=== PATIENT | female | born 1955 | race Caucasian/White ===

== ENCOUNTER 2020-01-25 15:26 | Observation (INO) | payer MEDICARE, SELFPAY ==
[2020-01-25] VITALS (9 sets, daily range): BP systolic 110–134; BP diastolic 56–80; PULSE 60–79; RESP 12–19; TEMP 36.2–37.7; O2SAT 94–95; BMI 35.1
--- NOTE | ~2020-01-25 | XR_ITS ---
EXAMINATION: XR chest 1V portable 01/25/2020 16:06 INDICATION: Left chest pain PROCEDURE: AP portable chest COMPARISON: 11/22/2016 FINDINGS: The lungs are clear. The cardiomediastinal silhouette is within normal limits. There are no pleural effusions. There is no pneumothorax suspected. IMPRESSION: 1: NO ACUTE CARDIOPULMONARY DISEASE. Reviewed, dictated and finalized at location A.
--- NOTE | 2020-01-25 15:33 | ECG_ITS ---
Measurements Intervals [place] Rate: 61 P: 60 UT: 232 QRS: -1 QRSD: 102 T: 51 QT: 474 QTc: 481 Interpretive Statements SINUS RHYTHM WITH FIRST DEGREE AV BLOCK PROLONGED QT INTERVAL ABNORMAL ECG Electronically Signed On 01-26-2020 7:18:33 CDT by Vishnu Hernadez D.O.
[2020-01-25 16:10] LABS: Basophils Absolute Auto 0.02 K/mm3 (0.00-0.10); Basophils Percent Auto 0.4 % (0.0-1.0); Eosinophils Absolute Auto 0.48 K/mm3 (0.02-0.50); Hematocrit 38.7 % (35.0-49.0); Hemoglobin 12.2 g/dL (12.0-15.0); Immature Granulocyte Absolute 0.02 K/mm3 (0.00-0.00); Immature Granulocyte Percent A 0.4 % (0.0-0.0); Lymphocytes Absolute Auto 1.57 K/mm3 (1.10-4.50); Lymphocytes Percent Auto 29.5 % (18.0-42.0); Mean Corpuscular HGB Conc 31.5 g/dL (32.0-36.0); Mean Corpuscular Hemoglobin 29.2 pg (27.0-31.0); Mean Corpuscular Volume 92.6 fL (78.0-102.0); Mean Platelet Volume 10.1 fl (9.2-11.8); Monocytes Absolute Auto 0.37 K/mm3 (0.10-0.90); Neutrophils Absolute Auto 2.9 K/mm3 (1.7-7.2); Neutrophils Percent Auto 53.7 % (50.0-70.0); Platelet Count Result 204 K/mm3 (150-420); Red Blood Count 4.18 M/mm3 (4.20-5.40); Red Cell Distribution Width 13.3 % (11.6-14.4); White Blood Count 5.3 K/mm3 (4.8-10.8)
[2020-01-25 16:22] LABS: INR 1.1; Partial Thromboplastin Time 26.6 SEC (22.3-31.6); Prothrombin Time 11.1 Seconds (9.64-11.0)
[2020-01-25 16:24] LABS: D Dimer 0.31 mg/L (0.19-0.50)
[2020-01-25 16:26] LABS: BNP 7 pg/mL (0-100)
[2020-01-25 16:32] LABS: Troponin I < 0.02 ng/mL (0.00-0.056)
[2020-01-25 16:33] LABS: Alanine Aminotransferase 18 U/L (14-59); Albumin Level 3.2 g/dL (3.4-5.0); Alkaline Phosphatase 88 U/L (46-116); Anion Gap 8 mmol/L (8-16); Aspartate Amino Transferase 18 U/L (15-37); Bilirubin,Total 0.4 mg/dL (0.00-1.00); Blood Urea Nitrogen 15 mg/dL (7-18); Calcium 8.4 mg/dL (8.5-10.1); Carbon Dioxide 29 mmol/L (21-32); Chloride 105 mmol/L (98-108); Estimated CRCL calculation 77 ml/min; Estimated Glomerular Filt Rate 58; Glucose 99 mg/dL (70-99); Lipase 63 U/L (73-393); Osmolality Calculated 294 mOsm/kg (285-295); Potassium 3.8 mmol/L (3.5-5.1); Sodium 142 mmol/L (136-145); Thyroid Stimulating Hormone 2.34 uIU/mL (0.36-3.74); Total Protein 7.3 g/dL (6.4-8.2)
--- NOTE | 2020-01-25 16:41 | ED.CHESTPAIN ---
HPI - Chest Pain General Chief Complaint: Chest Pain Stated Complaint: ems arrival Source: patient and EMS Mode of arrival: EMS Limitations: no limitations History of Present Illness HPI narrative: This is a 64-year-old female presents via EMS with some midsternal chest pain feels heaviness started earlier this afternoon after worker from her nap. The patient denies having any other symptoms of shortness of breath, no nausea or vomiting no diaphoresis. Patient is currently not a smoker, has a family history of heart disease in her mother. And the patient has a history of a bypass in 2005 and had a cardiac catheterization in 2016 which they told her she had a normal catheterization. Patient has a history of hypothyroidism, hyperlipidemia, hypertension, COPD. currently the patient has a nonproductive cough with no shortness of breath no fever chills. The patient is visiting from out of town from [place] and her primary care and home support worker located in the [facility]. MD complaint: chest pain, chest heaviness and chest discomfort Pertinent past history: coronary artery disease and prior CO Onset (ago): hour(s) Timing of current episode: episodic and constant Prior episodes: Yes Onset: during rest Pain location: substernal and epigastric Pain radiation: none Severity: moderate Quality: aching Relieving factors: nothing Related Data Home Medications Medication Instructions Recorded Confirmed clopidogrel 75 mg PO DAILY 01/25/20 01/25/20 donepezil 10 mg PO HS 01/25/20 01/25/20 gabapentin 800 mg PO TID 01/25/20 01/25/20 ipratropium-albuterol 3 ml INHALATION PRN 01/25/20 01/25/20 levothyroxine 75 mcg PO DAILY 01/25/20 01/25/20 losartan 50 mg PO DAILY 01/25/20 01/25/20 metoprolol tartrate 25 mg PO BID 01/25/20 01/25/20 pravastatin 40 mg PO DAILY 01/25/20 01/25/20 Allergies Allergy/AdvReac Type Severity Reaction Status Date / Time IV CONTRAST Allergy Unknown Uncoded 01/25/20 15:40 Review of Systems Review of Systems: All systems reviewed & are unremarkable except as noted in HPI and below PMFSH Past Medical History Medical History CAD (coronary artery disease) COPD (chronic obstructive pulmonary disease) HLD (hyperlipidemia) HTN (hypertension) Hypothyroidism (acquired) Exam Const: General: no acute distress and alert Orientation/consciousness: patient oriented x3 HENMT: Head: normal to inspection Eyes: Conjunctivae: conjunctivae normal Pupils: Equal, round and reactive pupils present Neck: Neck: normal visual inspection, no lymphadenopathy and no meningeal signs Chest: Chest palpation & inspection: normal inspection of the chest Resp: Effort & Inspection: normal respiratory effort Auscultation: clear to auscultation bilaterally Cardio: Rate: regular rate Rhythm: regular rhythm GI: Auscultation: normal bowel sounds : General: Yes no CVA tenderness Skin: General skin exam: normal color Rashes: no rashes Neuro: General: patient oriented x3, moves all extremities and no meningeal signs Extrem: General: normal to inspection Psych: Mental Status: mental status grossly normal Course Course Emergency Course: patient has reproducible chest pain received Toradol and with her significant history of CAD and status post CO with CABG will admit for observation and run serial troponins. Vital Signs Vital signs: Vital Signs Temperature 37.7 C H 01/25/20 15:26 Pulse Rate 79 01/25/20 15:26 Respiratory Rate 19 01/25/20 15:26 Blood Pressure 123/78 01/25/20 15:26 Pulse Oximetry 95 01/25/20 15:26 Temperature 37.7 C H 01/25/20 15:26 Pulse Rate 78 01/25/20 15:30 Respiratory Rate 19 01/25/20 15:26 Blood Pressure 123/78 01/25/20 15:26 Pulse Oximetry 95 01/25/20 15:26 MDM - Chest Pain Lab Data Result diagrams: 01/25/20 16:05 01/25/20 16:05 Labs: Lab Results 01/25/20 08
[2020-01-25] MEDS: KETOROLAC 30 MG/ML VIAL (*BKC) IV PUSH (16:51)
--- NOTE | 2020-01-25 16:51 | PC.NURSE ---
RN ATTEMPTED TO CONTACT 2ND FLOOR CHARGE NURSE FOR ROOM ASSIGNMENT AT THIS TIME. NO ANSWER. WILL TRY AGAIN IN 5 MINUTES.
--- NOTE | 2020-01-25 17:04 | PC.NURSE ---
2780 RN SPOKE WITH HANG HIGUERA RN. ROOM 211 PROVIDED. REGISTRATION NOTIFIED.
--- NOTE | 2020-01-25 17:06 | PC.NURSE ---
1707 RN ATTEMPTED TO CALL REPORT. NO ANSWER. WILL TRY BACK IN 5 MINUTES.
--- NOTE | 2020-01-25 17:21 | PC.NURSE ---
1721 RN ATTEMPTED TO CALL NURSE TO NURSE REPORT. NO ANSWER AFTER SEVERAL RINGS. WILL TRY AGAIN IN 5 MINUTES.
--- NOTE | 2020-01-25 17:41 | PC.NURSE ---
REPORT PROVIDED DAVIDA MANUEL AT [id number]
--- NOTE | 2020-01-25 19:34 | ADMGEN ---
This patient, Sadia Villafuerte, was admitted to 2nd Floor Room 211-1. Patient oriented to hospital policies and general routines including ID bracelet, bed and alarms, visiting hours, pain management, procedures, bathroom and other care routines, personal items, smoking policy, room service/diet, and visiting hours. Valuables list includes phone, wallet, keys, red t-shirt, saxena sweat pants, socks, tennis shoes, blue sports bra, underpants. Information on how to activate the Rapid Response Team has been discussed. Patient are encouraged to report perceived risks to care and to ask questions if they do not understand what they are told or what they should do.
--- NOTE | 2020-01-25 19:55 | PC.NURSE ---
01/25/2020 1800 64 year old female presented in ER via ambulance with c/o chest pain radiating down left arm. Patient received ASA and nitro in ambulance as well as pain med in ER, continues to c/o pain. Patient is alert and oriented x3. Patient just moved here from [place] and is staying with a cousin at this time. Patient states she believes the pain was related to argument with cousin in which police were called last night. Patient is calm at this time and shows no signs of distress. 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 Patient wears special shoes in which she can clip onto her right shoe and has a piece that goes around her calf to hold her left foot in place when she walks. Patient has COPD, CAD, x2 UT, CHF. Patient [place] Dr. [phone]. Supper given to patient. Nurse explained call light/tv remote, phone. Patient refused to give password. She does not want nursing to give information. May send calls to her room. Patient sent room phone number to family/boyfriend.
[2020-01-25 19:56] LABS: Troponin I < 0.02 ng/mL (0.00-0.056)
[2020-01-25] MEDS: GABAPENTIN 400 MG CAPSULE 800 MG PO (20:31)
[2020-01-25] MEDS: SODIUM CHLORIDE 0.9% IV 1,000 ML 100 ML IV CONT (20:31)
[2020-01-25] MEDS: METOPROLOL TARTRATE 25 MG TABLET PO (20:32)
[2020-01-25] MEDS: IPRATROPIUM 0.5 MG/ALBUTEROL SULFATE 2.5 MG AMPUL.NEB 3 ML INHALATION (20:33)
[2020-01-25] MEDS: DONEPEZIL HCL 5 MG TABLET 10 MG PO (20:34)
--- NOTE | 2020-01-25 22:37 | PC.NURSE ---
MD notified updated status and patient's continued c/o chest pain. no new orders @ this time.
[2020-01-25 22:57] LABS: Troponin I < 0.02 ng/mL (0.00-0.056)
[2020-01-25] MEDS: ONDANSETRON INJ 4 MG/2 ML VIAL IV PUSH (23:49)
[2020-01-26] VITALS (9 sets, daily range): BP systolic 94–107; BP diastolic 50–56; PULSE 49–65; RESP 16–20; TEMP 36.6–36.7; O2SAT 93–96
--- NOTE | 2020-01-26 01:39 | PC.NURSE ---
Pt dozing on and off; No signs of discomfort noted and IV fluid continues to infuse as ordered.
--- NOTE | 2020-01-26 03:32 | PC.NURSE ---
Pt asleep and no signs of discomfort noted. IV fluid continues to infuse as ordered.
--- NOTE | 2020-01-26 05:38 | PC.NURSE ---
Pt asleep and no signs of chest pain noted. IV fluid continues to infuse as ordered.
[2020-01-26] MEDS: IPRATROPIUM 0.5 MG/ALBUTEROL SULFATE 2.5 MG AMPUL.NEB 3 ML INHALATION ×2 (05:44→12:31)
[2020-01-26] MEDS: LEVOTHYROXINE SODIUM 75 MCG TABLET PO (06:24)
[2020-01-26 07:14] LABS: Hematocrit 37.5 % (35.0-49.0); Hemoglobin 11.6 g/dL (12.0-15.0); Mean Corpuscular HGB Conc 30.9 g/dL (32.0-36.0); Mean Corpuscular Hemoglobin 29.4 pg (27.0-31.0); Mean Corpuscular Volume 94.9 fL (78.0-102.0); Mean Platelet Volume 10.2 fl (9.2-11.8); Platelet Count Result 191 K/mm3 (150-420); Red Blood Count 3.95 M/mm3 (4.20-5.40); Red Cell Distribution Width 13.4 % (11.6-14.4)
[2020-01-26 07:40] LABS: Alanine Aminotransferase 17 U/L (14-59); Albumin Level 2.7 g/dL (3.4-5.0); Alkaline Phosphatase 76 U/L (46-116); Anion Gap 4 mmol/L (8-16); Aspartate Amino Transferase 19 U/L (15-37); Bilirubin,Total 0.3 mg/dL (0.00-1.00); Blood Urea Nitrogen 21 mg/dL (7-18); Carbon Dioxide 30 mmol/L (21-32); Chloride 109 mmol/L (98-108); Estimated CRCL calculation 62 ml/min; Estimated Glomerular Filt Rate 51; Glucose 93 mg/dL (70-99); Osmolality Calculated 299 mOsm/kg (285-295); Potassium 4.2 mmol/L (3.5-5.1); Sodium 143 mmol/L (136-145); Total Protein 6.5 g/dL (6.4-8.2)
[2020-01-26 07:59] LABS: Band Neutrophils Percent 0 % (0-6); Basophils Absolute Manual 0.05 K/mm3 (0-0.1); Basophils Percent Manual 1 % (0-1); Eosinophils Absolute Manual 0.55 K/mm3 (0.02-0.5); Eosinophils Percent Manual 11 % (1-6); Lymphocytes Absolute Manual 1.85 K/mm3 (1.1-4.5); Lymphocytes Percent Manual 37 % (18-44); Monocytes Absolute Manual 0.15 K/mm3 (0.1-0.90); Monocytes Percent Manual 3 % (3-9); Neutrophils Percent Manual 48 % (46-73); Platelet Estimate Adequate (Adequate); Total Cells Counted 100
[2020-01-26] MEDS: PRAVASTATIN SODIUM 20 MG TABLET 40 MG PO (08:03)
[2020-01-26] MEDS: GABAPENTIN 400 MG CAPSULE 800 MG PO (08:03)
[2020-01-26] MEDS: LOSARTAN POTASSIUM 50 MG TABLET PO (08:03)
[2020-01-26] MEDS: SODIUM CHLORIDE 0.9% IV 1,000 ML 100 ML IV CONT (08:06)
[2020-01-26] MEDS: MORPHINE SULFATE 2 MG/ML INJ IV PUSH (10:05)
--- NOTE | 2020-01-26 11:31 | PM.SD ---
Same Day Admit/Disch: HPI History of Present Illness Chief complaint: chest pain <AJITH Gallegos - Last Filed: 01/26/20 13:55> Narrative: Sadia Villafuerte is a 64 year old female that presented to [facility] ED yesterday with complaints of chest pain. Patient has a past medical history of CAD, COPD, HLD, hypertension, hyperlipidemia she also has a history of having a CABG. According to the patient while at a relative's house she had an argument with a family member and a police were called. Later that day at approximately 5:00 pm. she laid down to go to sleep and woke up at approximately 2:00 a.m. to use the restroom. on the way to the restroom she developed a stabbing pain and heaviness to the left side of her chest that radiated down her left arm with shortness of breath. according to patient when she had her last [place] her symptoms were similar . patient was transported to the ED via EMS patient's troponin were negative x3, EKG indicated sinus rhythm with 1st degree AV block with heart rate of 61, vital signs 97.9, 53, 18, 96% room air, 107/56. Patient lives out of town her community cultural development officer is located out of town. case coordination has been consulted to give patient referrals to a community cultural development officer to follow up with after discharge. this day of discharge patient denies any shortness of breath she does continue to have chest discomfort she will be given pain medication on discharge. Patient able to tolerate all meals , slept well and ambulate at baseline. Patient denies SOB, , palpitation, extremity numbness, lightheadness, dizziness, constipation, diarrhea, chills or fever. Patient agree that they are ready for discharge and discharge plan. <AJITH Gallegos - Last Filed: 01/26/20 13:55> [facility] Past Medical History Medical History: Medical History CAD (coronary artery disease) COPD (chronic obstructive pulmonary disease) HLD (hyperlipidemia) HTN (hypertension) Hypothyroidism (acquired) <AJITH Gallegos - Last Filed: 01/26/20 13:55> Social History Social History: Social History Smoking status: Former smoker Second hand tobacco smoke exposure: No Alcohol intake: never Substance use: never Substance use type: does not use Gender identity (if verbalized by the patient): Female Spiritual care concerns: No <CLINTON Gallegos-Shai - Last Filed: 01/26/20 13:55> Same Day Admit/Disch: Med Pre-admit Medications Home Medications: Home Medications Medication Instructions Recorded Confirmed Type clopidogrel 75 mg PO DAILY 01/25/20 01/25/20 History donepezil 10 mg PO HS 01/25/20 01/25/20 History gabapentin 800 mg PO TID 01/25/20 01/25/20 History levothyroxine 75 mcg PO DAILY 01/25/20 01/25/20 History losartan 50 mg PO DAILY 01/25/20 01/25/20 History metoprolol tartrate 25 mg PO BID 01/25/20 01/25/20 History pravastatin 40 mg PO DAILY 01/25/20 01/25/20 History ipratropium-albuterol 3 ml INHALATION TID PRN #90 ml 01/26/20 Rx nabumetone [Relafen DS] 750 mg PO DAILY #30 tablet 01/26/20 Rx nitroglycerin [Nitrolingual] 1 spray TRANSLINGU Q3-5M PRN #4.9 01/26/20 Rx gm omeprazole 20 mg PO DAILY #30 tablet 01/26/20 Rx <CLINTON Gallegos-Shai - Last Filed: 01/26/20 13:55> Exam Narrative: Exam Narrative: General: A well-developed, well-nourished male sitting up in bed no acute distress. HEENT: Normocephalic, atraumatic. PERRL, EOMI. Sclerae anicteric. Oral mucosa moist. Oropharynx clear. Neck: Supple. Respiratory: crackles Cardiovascular: occasional bradycardic and rhythm Gastrointestinal: Abdomen is soft, nontender, and nondistended with positive bowel sounds. No organomegaly. Skin: Warm, dry, and slightly pale.. No rash or lesions on limited exam. Extremities: No cyanosis, clubbing, or edema. Radial and pedal pulses intact. Neurological: Alert. Cranial nerves 2
[2020-01-27 14:22] LABS: SARS-CoV-2 RNA PCR Negative
== END 2020-01-26 13:05 | disposition home or self-care (01) ==
LOC: CHSED 16:50 → CHS2ND 17:07
PROVIDERS: Admitting Provider Emergency Medicine; Emergency Provider Emergency Medicine; Visit Provider Emergency Medicine
DX: R07.9 Chest pain, unspecified (principal); I25.118 Atherosclerotic heart disease of native coronary artery with other forms of angina pectoris; I10 Essential (primary) hypertension; J44.9 Chronic obstructive pulmonary disease, unspecified; E03.9 Hypothyroidism, unspecified; E78.5 Hyperlipidemia, unspecified; I25.2 Old myocardial infarction; Z95.1 Presence of aortocoronary bypass graft; Z20.828 Contact with and (suspected) exposure to other viral communicable diseases
CPT/HCPCS: 36415; 71045; 80053; 83690; 83735; 83880; 84443; 84484; 85025; 85380; 85610; 85730; 87635; 93005; 94640; 96361; 96374; 96375; 99284; 99285; A9270; C9803; G0378; J1885; J2270; J2405; J7030; U0003

== ENCOUNTER 2020-02-18 15:39 | Outpatient (CLI) | payer MEDICARE, SELFPAY ==
--- NOTE | ~2020-02-18 | XR_ITS ---
XR chest 2V 02/18/2020 16:00 Indication: Shortness of breath. Chest pain and cough. Procedure: 2 view chest Comparison: Comparison to multiple prior studies sequentially, with oldest reviewed study dated 11/22. Findings: Heart size normal. Bibasilar atelectasis. No focal pneumonia, pulmonary edema, pleural effu sangeeta or pneumothorax. No acute osseous abnormality. Impression: 1: Bibasilar atelectasis. Reviewed, dictated and finalized at location A. Impression: 1: Bibasilar atelectasis.
[2020-02-18 15:55] LABS: Hematocrit 37.6 % (35.0-49.0); Mean Corpuscular HGB Conc 31.9 g/dL (32.0-36.0); Mean Corpuscular Hemoglobin 29.8 pg (27.0-31.0); Mean Corpuscular Volume 93.3 fL (78.0-102.0); Mean Platelet Volume 10.1 fl (9.2-11.8); Platelet Count Result 178 K/mm3 (150-420); Red Blood Count 4.03 M/mm3 (4.20-5.40); Red Cell Distribution Width 13.7 % (11.6-14.4); White Blood Count 5.9 K/mm3 (4.8-10.8)
[2020-02-18 16:16] LABS: BNP < 5.0 pg/mL (0-100)
[2020-02-18 16:40] LABS: Anion Gap 8 mmol/L (8-16); Blood Urea Nitrogen 17 mg/dL (7-18); Carbon Dioxide 31 mmol/L (21-32); Chloride 106 mmol/L (98-108); Estimated Glomerular Filt Rate > 60; Glucose 115 mg/dL (70-99); Osmolality Calculated 302 mOsm/kg (285-295); Potassium 3.7 mmol/L (3.5-5.1); Sodium 145 mmol/L (136-145)
== END 2020-02-18 15:40 | disposition home or self-care (01) ==
LOC: CHSLAB 15:42
PROVIDERS: PCP Family Medicine; Visit Provider Family Medicine
DX: J44.9 Chronic obstructive pulmonary disease, unspecified (principal); R06.02 Shortness of breath
CPT/HCPCS: 36415; 71046; 80048; 83880; 85027

== ENCOUNTER 2020-03-17 08:39 | Emergency (ER) | payer MEDICARE, SELFPAY ==
--- NOTE | ~2020-03-17 | XR_ITS ---
EXAMINATION: XR chest 1V portable DATE: 03/17/2020 09:18 INDICATION: Shortness of breath and chest pain. TECHNIQUE: A single frontal view of the chest was obtained. COMPARISON: Chest 2 views 02/18/2020, CT abdomen and pelvis 11/22/2016 FINDINGS: There are airspace opacities in the lower lung zones. No pleural effusion or pneumothorax. The heart size is normal. Surgical clips overlie the mediastinum. IMPRESSION: 1. Airspace opacities in the lower lung zones, consistent with atelectasis/scarring versus pneumonia. Reviewed, dictated and finalized at location A. IMPRESSION: 1. Airspace opacities in the lower lung zones, consistent with atelectasis/scar ring versus pneumonia.
[2020-03-17 08:40] VITALS: BP 141/84; PULSE 109; RESP 24; TEMP 36.8; O2SAT 93
[2020-03-17 08:45] VITALS: PULSE 84
--- NOTE | 2020-03-17 08:51 | ECG_ITS ---
Measurements Intervals [place] Rate: 107 P: 59 RI: 176 QRS: 38 QRSD: 95 T: 37 QT: 345 QTc: 462 Interpretive Statements SINUS TACHYCARDIA BORDERLINE R WAVE PROGRESSION, ANTERIOR LEADS BASELINE WANDER- I, II, III, AVR, AVL, V2 ABNORMAL ECG Electronically Signed On 03-17-2020 8:57:50 CDT by Vishnu Hernadez D.O.
--- NOTE | 2020-03-17 08:57 | ED.GENADULT ---
HPI - General Adult General Chief complaint: Shortness of Breath/Dyspnea Stated complaint: SOB Source: patient Mode of arrival: ambulatory Limitations: no limitations History of Present Illness HPI narrative: Sadia is a 64F with a PMH of CHF, CAD, COPD, HLD, HTN and hx of CVA that presented to the ED with 3 days of worsening SOB and cough. She reports that a cough and SOB came on insidously and have become progressively worse. They are worse when she is lying down. Her cough is productive with yellow sputum. Cough and SOB are worse when she is lying down. She does have some dull CP with activity and when she gets out of breath. No N/V, or syncope reported. No rhinorrhea, congestion or diarrha. Of note she does not have any CP right now. Related Data Home Medications Medication Instructions Recorded Confirmed levothyroxine 75 mcg PO DAILY 01/25/20 01/25/20 Allergies Allergy/AdvReac Type Severity Reaction Status Date / Time tramadol Allergy Unknown Verified 03/09/20 07:38 IV CONTRAST Allergy Unknown Uncoded 01/25/20 15:40 Review of Systems Constitutional: Constitutional: Denies chills, Reports fatigue, Denies fever(s) and Reports weakness Eyes: Eyes: Reports no additional eye complaints ENT: Reports system reviewed and no additional complaints, except as documented Cardiovascular: Cardiovascular: Reports as per HPI Respiratory: Respiratory: Reports as per HPI Gastrointestinal: Gastrointestinal: Reports no additional gastrointestinal complaints Genitourinary: Genitourinary: Reports no additional female genitourinary complaints Musculoskeletal: Musculoskeletal: Reports no additional musculoskeletal complaints Integumentary/Breasts: Skin/Breast: Reports system reviewed and no additional complaints, except as docu Neurologic: Reports system reviewed and no additional complaints, except as documented Psychiatric: Psychiatric: Reports no additional psychiatric complaints Endocrine: Endocrine: Reports no additional endocrine complaints Hematologic/Lymphatic: Hematologic/Lymphatic: Reports no additional hematologic/lymphatic complaints Allergic/Immunologic: Allergic/Immunologic: Reports no additional allergic/immunologic complaints [facility] Past Medical History Medical History CAD (coronary artery disease) CHF (congestive heart failure) COPD (chronic obstructive pulmonary disease) Decreased hearing of left ear History of CVA (cerebrovascular accident) HLD (hyperlipidemia) HTN (hypertension) Hypothyroidism (acquired) Idiopathic neuropathy Surgical History Surgical History No history of previous surgery Social History Social History Smoking status: Former smoker Second hand tobacco smoke exposure: No Alcohol intake: never Substance use: never Substance use type: does not use Gender identity (if verbalized by the patient): Female Spiritual care concerns: No Exam Const: General: alert Nutritional Appearance: well nourished Orientation/consciousness: patient oriented x3 Limitations: No altered mental status Other: In mild distress HENMT: Head: normal to inspection Other: atraumatic Eyes: Conjunctivae: conjunctivae normal Pupils: Equal, round and reactive pupils present Neck: Neck: normal visual inspection Other: No JVD Chest: Chest palpation & inspection: normal inspection of the chest Resp: Effort & Inspection: labored and tachypneic Other: Diffuse wheezez in the upper lobes with prolonged expiratory phase and poor air movement. Crackles and decreased lung sounds in the bases bilaterally. Cough present on exam. Cardio: Rate: tachycardic Rhythm: regular rhythm Heart sounds: no murmurs GI: Inspection: non-distended GI Palp: Yes Soft to palpation and No Tenderness to palpation present (GI) Skin: General sk
[2020-03-17] MEDS: IPRATROPIUM 0.5 MG/ALBUTEROL SULFATE 2.5 MG AMPUL.NEB 3 ML INHALATION (08:59)
[2020-03-17 09:00] VITALS: PULSE 93; RESP 22
[2020-03-17 09:06] VITALS: PULSE 97; RESP 20
[2020-03-17 09:16] LABS: Hematocrit 38.7 % (35.0-49.0); Hemoglobin 12.3 g/dL (12.0-15.0); Mean Corpuscular HGB Conc 31.8 g/dL (32.0-36.0); Mean Corpuscular Hemoglobin 29.5 pg (27.0-31.0); Mean Corpuscular Volume 92.8 fL (78.0-102.0); Mean Platelet Volume 10.1 fl (9.2-11.8); Platelet Count Result 205 K/mm3 (150-420); Red Blood Count 4.17 M/mm3 (4.20-5.40); Red Cell Distribution Width 13.7 % (11.6-14.4)
[2020-03-17 09:30] LABS: BNP 6.6 pg/mL (0-100)
[2020-03-17 09:34] LABS: Anion Gap 8 mmol/L (8-16); Blood Urea Nitrogen 17 mg/dL (7-18); Calcium 8.9 mg/dL (8.5-10.1); Carbon Dioxide 28 mmol/L (21-32); Chloride 106 mmol/L (98-108); Estimated CRCL calculation 65 ml/min; Estimated Glomerular Filt Rate 59; Glucose 116 mg/dL (70-99); Osmolality Calculated 296 mOsm/kg (285-295); Potassium 4.1 mmol/L (3.5-5.1); Sodium 142 mmol/L (136-145)
[2020-03-17 09:35] LABS: Troponin I < 0.02 ng/mL (0.00-0.056)
[2020-03-17 09:36] LABS: Prothrombin Time 10.7 Seconds (9.64-11.0)
[2020-03-17 09:37] LABS: Influenza Control Valid (Valid)
[2020-03-17 09:49] LABS: Band Neutrophils Percent 0 % (0-6); Basophils Percent Manual 0 % (0-1); Eosinophils Absolute Manual 0.72 K/mm3 (0.02-0.5); Eosinophils Percent Manual 12 % (1-6); Lymphocytes Absolute Manual 1.44 K/mm3 (1.1-4.5); Lymphocytes Percent Manual 24 % (18-44); Monocytes Absolute Manual 0.36 K/mm3 (0.1-0.90); Monocytes Percent Manual 6 % (3-9); Neutrophils Absolute Manual 3.48 K/mm3 (1.7-7.2); Neutrophils Percent Manual 58 % (46-73); Platelet Estimate Adequate (Adequate); Total Cells Counted 100
[2020-03-17] MEDS: methylPREDNISolone SOD SUCC 125 MG VIAL IV PUSH (10:11)
[2020-03-17 10:24] VITALS: BP 108/70; PULSE 82; RESP 20; TEMP 36.9; O2SAT 94
[2020-03-17 23:56] LABS: SARS-CoV-2 RNA PCR Negative
== END 2020-03-17 10:35 | disposition home or self-care (01) ==
PROVIDERS: Emergency Provider Family Medicine; PCP Family Medicine
DX: J44.9 Chronic obstructive pulmonary disease, unspecified (principal); Z20.828 Contact with and (suspected) exposure to other viral communicable diseases; I25.10 Atherosclerotic heart disease of native coronary artery without angina pectoris; I50.9 Heart failure, unspecified; E78.5 Hyperlipidemia, unspecified; I10 Essential (primary) hypertension; E03.9 Hypothyroidism, unspecified; Z87.891 Personal history of nicotine dependence
CPT/HCPCS: 36415; 71045; 80048; 83880; 84484; 85025; 85610; 87635; 87804; 93005; 94640; 96374; 99284; C9803; J2930; U0003

== ENCOUNTER 2020-03-18 16:24 | Emergency (ER) | payer MEDICARE, SELFPAY ==
--- NOTE | ~2020-03-18 | XR_ITS ---
EXAMINATION: XR soft tissue neck DATE: 03/18/2020 17:06 INDICATION: Dysphagia. Foreign body sensation. TECHNIQUE: 2 views of the neck soft tissues were obtained. COMPARISON: None. FINDINGS: The adenoids, palatine tonsils, prevertebral soft tissues, epiglottis, and airway are winston l. There are surgical clips in the mediastinum. IMPRESSION: 1. No radiopaque foreign body. Reviewed, dictated and finalized at location A.
[2020-03-18 17:00] VITALS: BP 139/64; PULSE 80; RESP 17; TEMP 36.7; O2SAT 94
--- NOTE | 2020-03-18 17:20 | ED.SOB ---
HPI - SOB/Dyspnea General Chief Complaint: Shortness of Breath/Dyspnea Stated Complaint: AMB Source: patient Mode of arrival: EMS Limitations: no limitations History of Present Illness HPI Narrative: This is a 64-year-old female with a history of COPD recently was seen yesterday in the emergency department and treated for upper respiratory infection/ COPD exacerbation and was sent home with follow-up with her primary care physician. The patient today while eating pizza called EMS because she had the sensation that a foreign object being a piece of onion was stuck in her throat, currently there is no coughing others no drooling there is no shortness of breath no audible wheezing no upper airway wheezing. The patient appears anxious is currently on antibiotics. There is no chest pain no fever chills no nausea vomiting no abdominal pain. MD elicited complaint: shortness of breath Pertinent past history: COPD Onset (ago): hour(s) Context: recent illness and anxiety Timing: improved Severity: mild Exacerbating factors: nothing Related Data Home Medications Medication Instructions Recorded Confirmed levothyroxine 75 mcg PO DAILY 01/25/20 01/25/20 Allergies Allergy/AdvReac Type Severity Reaction Status Date / Time tramadol Allergy Unknown Verified 03/09/20 07:38 IV CONTRAST Allergy Unknown Uncoded 01/25/20 15:40 Review of Systems Review of Systems: All systems reviewed & are unremarkable except as noted in HPI and below PMFSH Past Medical History Medical History CAD (coronary artery disease) CHF (congestive heart failure) COPD (chronic obstructive pulmonary disease) Decreased hearing of left ear History of CVA (cerebrovascular accident) HLD (hyperlipidemia) HTN (hypertension) Hypothyroidism (acquired) Idiopathic neuropathy Surgical History Surgical History No history of previous surgery Social History Social History Smoking status: Former smoker Second hand tobacco smoke exposure: No Alcohol intake: never Substance use: never Substance use type: does not use Gender identity (if verbalized by the patient): Female Spiritual care concerns: No Exam Const: General: no acute distress and alert Orientation/consciousness: patient oriented x3 Limitations: altered mental status HENMT: Head: normal to inspection Mouth: Yes Normal oral and palatal mucosa present and Yes lip normal Throat: posterior oropharynx normal Eyes: Conjunctivae: conjunctivae normal Pupils: Equal, round and reactive pupils present Neck: Neck: normal visual inspection, no lymphadenopathy and no meningeal signs Chest: Chest palpation & inspection: normal inspection of the chest Resp: Effort & Inspection: normal respiratory effort Auscultation: clear to auscultation bilaterally Cardio: Rate: regular rate Rhythm: regular rhythm GI: GI Palp: Yes Soft to palpation Auscultation: normal bowel sounds : General: Yes no CVA tenderness Skin: General skin exam: normal color Rashes: no rashes Neuro: General: patient oriented x3 and moves all extremities Psych: Mental Status: mental status grossly normal Course Course Emergency Course: Reassessment of patient patient O2 saturations 95% there is no audible wheezing no upper airway wheezing no chest pain no nausea or vomiting, patient has been giving a.m. soda and is drinking without any obstruction. Critical Care Time Critical Care Time Critical Care Time: No Discharge Plan Discharge Clinical Impression: Foreign body aspiration Qualifiers: Encounter type: initial encounter Qualified Code(s): T17.900A - Unspecified foreign body in respiratory tract, part unspecified causing asphyxiation, initial encounter Patient Disposition: Home, Self-Care Condition: Stable Instructions: Antibiotic Form, F
[2020-03-18 17:35] VITALS: BP 147/51; PULSE 74; RESP 16; O2SAT 95
== END 2020-03-18 17:35 | disposition home or self-care (01) ==
PROVIDERS: Emergency Provider Emergency Medicine; PCP Family Medicine
DX: T17.900A Unspecified foreign body in respiratory tract, part unspecified causing asphyxiation, initial encounter (principal); I25.10 Atherosclerotic heart disease of native coronary artery without angina pectoris; I50.9 Heart failure, unspecified; Z86.73 Personal history of transient ischemic attack (TIA), and cerebral infarction without residual deficits; E78.5 Hyperlipidemia, unspecified; I10 Essential (primary) hypertension; E03.9 Hypothyroidism, unspecified; Z87.891 Personal history of nicotine dependence
CPT/HCPCS: 70360; 99282; 99283